=== PATIENT | male | born 1960 | race Caucasian/White ===

== ENCOUNTER 2016-11-30 07:07 | Day surgery (SDC) | payer OTHER ==
[2016-11-28 10:34] VITALS: BMI 35.1
[~2016-11-30 07:07] MED LIST: LACTATED RINGERS 1,000 ML IV SCH
[2016-11-30 07:38] VITALS: TEMP 97.5
[2016-11-30] MEDS ORDERED: LIDOCAINE 1% 20 ML VIAL (10MG/ML) FOR IV START INTRADERMA ONE (07:51)
[2016-11-30 07:52] LABS: Glucose,Whole Blood 86 mg/dL (75-99)
[2016-11-30] MEDS ORDERED: DEXTROSE 50%-WATER 50 ML SYRINGE IVP ONE (08:10)
[2016-11-30] MEDS ORDERED: fentaNYL (PF) 50 MCG/ML 2 ML AMP ONE (08:35)
[2016-11-30] MEDS ORDERED: LIDOCAINE 1% INJ 10MG/ML (20 ML MDV) ONE (08:35)
[2016-11-30] MEDS ORDERED: PROPOFOL 10 MG/ML 20 ML VIAL IV ONE (08:35)
[2016-11-30 09:13] VITALS: RESP 18
--- NOTE | 2016-11-30 09:18 | P.PCN ---
Date of Procedure: 11/30/16 Procedure(s) Performed: Procedure: 1. Esophagogastroduodenoscopy and biopsy. 2. Total colonoscopy. Preoperative diagnosis: Abdominal pain, change in bowel habits and abnormal CT of the abdomen. Postoperative diagnosis: 1. Mild gastritis and duodenitis. 2. Poor colon preparation, otherwise, exam of the colon and terminal ileum within normal limits. Preparation: HalfLytely prep. Sedation: Was provided by anesthesia. Brief clinical history: The patient is a 56-year-old male who was evaluated in the office because of abdominal pains and change in bowel habits. He had a CT of the abdomen in May 2016 that showed thickening in the duodenum. No alarm symptoms. Procedure: With the patient on his left lateral decubitus position and after informed consent and adequate sedation, I passed the Olympus-GIF 160 video upper endoscope cricopharyngeus down the esophagus. GE junction was around 43- 44 cm from the incisors and there was no definite hiatal hernia. There was some sticky exudates in the distal esophagus close to the GE junction that I was not certain that these were food debris or infectious in etiology. Biopsies were obtained. The stomach was insufflated with air and inspected in detail including the retroflex view in the cardia. There was some mottling and erythema in the antrum but no ulcers or erosions. Pyloric channel did not show any ulcers. Duodenal bulb, post bulbar area and descending duodenum showed minimal erythema but no ulcers or erosions. I obtained biopsies from the duodenum and the antrum and addition to the esophageal biopsies then the endoscope was withdrawn and I proceeded to do colonoscopy. Perianal area did not show any fissures or fistulas. There were no masses felt on digital rectal examination. The Olympus CFQ 160L video colonoscope was then inserted in the rectum in the usual fashion and advanced to the cecum. I intubated the ileocecal valve and examined the terminal ileum. Terminal ileum looked normal. Unfortunately, the preparation was poor and I was not able to wash and suction all the fecal material and fecal debris encountered. Where visualized, the mucosa appeared healthy. No obvious polyps or tumors or diverticular disease. I retroflexed the endoscope in the rectum before the endoscope was withdrawn. The patient tolerated the procedure well. Plan: The patient was reassured. Will await biopsy results. Since his preparation was less than ideal, I recommend repeat exam in 3-4 years before going to a 10-year schedule in the absence of family history or other risk factors for colon cancer.
[2016-11-30 09:24] LABS: Glucose,Whole Blood 104 mg/dL (75-99)
[2016-11-30 09:33] VITALS: BP 149/80; PULSE 68
== END 2016-11-30 09:47 | disposition home or self-care (01) ==
LOC: ORWHC2ENDO 07:07
DX: K29.50 Unspecified chronic gastritis without bleeding (principal); K29.80 Duodenitis without bleeding; R19.4 Change in bowel habit; R93.3 Abnormal findings on diagnostic imaging of other parts of digestive tract; J44.9 Chronic obstructive pulmonary disease, unspecified; J45.909 Unspecified asthma, uncomplicated; E11.9 Type 2 diabetes mellitus without complications; I10 Essential (primary) hypertension; G47.33 Obstructive sleep apnea (adult) (pediatric); F39 Unspecified mood [affective] disorder; Z79.4 Long term (current) use of insulin; Z79.891 Long term (current) use of opiate analgesic; Z79.899 Other long term (current) drug therapy
CPT/HCPCS: 88305; 88342; 43239; 45378; J2001; J3010; J2704

== ENCOUNTER → 2020-11-16 | Outpatient (CLI) | payer BC ==
--- NOTE | 2020-11-16 19:34 | CONS ---
CONSULTATION REASON FOR CONSULTATION: Sleep apnea. HISTORY OF PRESENT ILLNESS: Pipe is a 54-year-old male patient who is known to me. I have diagnosed him with having severe obstructive sleep apnea back in 2014, and at that time the patient had an AHI of 63, worse in the supine body position. He used to weigh around 300 pounds back then AND he was diabetic and had hypertension AND COPD. I ultimately treated the patient with BiPAP at a pressure of 16/12 cm of water with a Simplus medium-sized full- face mask. He has done extremely well over the past years to the point where the patient did not have to see me and he has been lost to followup. Today he is presenting back and he feels that his machine is giving up on him and it has become noisy and malfunctioning and for that reason, he is hoping to update his BiPAP unit. I checked the compliance over the past 30 days and the patient is very compliant utilizing his machine every night, averaging around 11 hour of BiPAP use per night with a leak of 10 L/minute, tidal volume generated on the machine was 380 cc with a respiratory rate of 19 and a minute ventilation of 7.3 L/minute. His AHI while on treatment is down to 0.5. The patient has been adequately treated and the patient's Dickinson score is down to 5. His weight has remained stable, probably with 5 pounds weight gain over the past 6 years. His sleep study machine was ordered to him originally through [employer] and [employer]. No new onset medical problems and comorbidities. He is not taking any sugar pills for now. His blood sugars according to him has been under adequate control. PAST MEDICAL HISTORY: 1. Obstructive sleep apnea. 2. Obesity. 3. Hypertension. 4. Peripheral neuropathy. 5. Carpal tunnel disease. 6. Chronic back pain secondary to lumbar disk disease. SURGICAL HISTORY: None. DRUG ALLERGIES: None. OUTPATIENT MEDICATION: List includes Cymbalta 60, 2 tablets a day, Diovan 160 mg p.o. daily, Neurontin 300 mg 3 times a day, [place] 10/325 on a p.r.n. basis. SOCIAL HISTORY: He smokes one pack of cigarettes a day. No history of alcoholism. No history of IV drugs. FAMILY HISTORY: Mother of stomach cancer. Father of lung disease. He is currently living with his . REVIEW OF SYSTEMS: Fourteen-point review of system was done. No new complaints. His sleep apnea has been well treated over the years. His current Dickinson score is only at 5. PHYSICAL EXAMINATION: VITAL SIGNS: BP is 174/91, pulse is 84, respirations 16, temperature 98.6, saturation 98% on room air. Height is 6 feet 1 inch, weight is 305, Dickinson score is at 5. BMI is 40.2. Neck size is 20 inches. GENERAL APPEARANCE: Calm and comfortable. HEENT: Head atraumatic, normocephalic. NECK: Supple, Mallampati class 4. There is no goiter or neck masses. LUNGS: Clear. HEART: Heart sounds are regular rate and rhythm, normal S1, S2. No S3, S4. No murmurs. ABDOMEN: Soft, nontender. No organomegaly. EXTREMITIES: No edema. No cyanosis or clubbing. NEUROLOGIC: Awake and alert. There is no focal neurological deficits. PSYCHIATRIC: Negative for anxiety or depression. IMPRESSION: 1. Symptomatic obstructive sleep apnea, positional, worse in a supine body position. Baseline AHI has been 53 based on a polysomnogram that was done in July of 2014. The patient has been treated over the years with a BiPAP pressure of 16/12 cm of water. He has an Air Curve 10s ResMed unit which has been functional over the past 6 years and recently the machine has been acting up and the patient is interested in updating his BiPAP unit. 2. Obesity with a stable body weight. Current BMI is 40.2. 3. Peripheral neuropathy. 4. Hypertension. 5. Chronic obstructive pulmonary disease. 6. Chronic back pain. PLAN: 1. Encourage weight loss. 2. Order a new BiPAP unit for this patient. I would rather this patient get a VPAP auto which will be set at a pressure of 16/12 cm of water with a pressure support of 4 and I should be able to make further adjustments in the future if needed. 3. If confirmation of sleep apnea is needed, will order a home sleep study. 4. Encourage weight loss. 5. Keep the same mask interface which is a medium-sized Simplus full-face mask. 6. Treat comorbidities including chronic back pain. 7. We will continue to follow. The patient will see me back after obtaining his new BiPAP unit for a compliancy check. MMODL / IJN: [id number] /
== END ==
LOC: SLEEP 13:53
PROVIDERS: ATTEND Internal Medicine Critical Care Medicine
DX: G47.33 Obstructive sleep apnea (adult) (pediatric) (principal); E66.9 Obesity, unspecified; Z68.41 Body mass index [BMI] 40.0-44.9, adult; E11.42 Type 2 diabetes mellitus with diabetic polyneuropathy; J44.9 Chronic obstructive pulmonary disease, unspecified; G89.29 Other chronic pain; M54.9 Dorsalgia, unspecified; F17.210 Nicotine dependence, cigarettes, uncomplicated
CPT/HCPCS: 99211

== ENCOUNTER → 2021-03-01 | Outpatient (CLI) | payer BC ==
--- NOTE | 2021-03-01 18:52 | PN ---
PROGRESS NOTE 60-year-old male patient with known history of obstructive sleep apnea coming in for a compliancy check. I was able to offer this patient an APAP unit which was set at a minimum pressure of 5 and a maximum pressure of 20. The patient has symptomatic obstructive sleep apnea and disease is severe with an AHI of 53. On today's evaluation, the patient is feeling excellent response and reports 100% improvement sleep quality while on CPAP therapy. He is using Vitera fullface mask large size. Based on the compliance data, he has been using the machine every night and he is utilizing his machine more than 4 hours 100% of the time. Average number of hours spent on the machine per night is 10.8 hours. Based on the average pressure delivered by the machine, the patient is utilizing a pressure of 13.6 cm of water and his AHI is down to 1.3 with a leak of 20 L/minute. His weight has been stable. He is trying to make an active effort to lose weight. His blood pressure is elevated. He is going to work with his primary care physician regarding a tighter blood pressure control. For the most part, his treatment is successful. Would like to increase the minimum pressure, knowing that the starting pressures are quite low for him. He has already eliminated ramp time. PHYSICAL EXAMINATION: BP is 182/83, pulse 80, respirations 16, temperature 97.0. Weatherford score is 5. Saturation 95% on room air. Weight is 301. GENERAL APPEARANCE: Obese, calm, comfortable. Head is atraumatic normocephalic. NECK: Supple. There is no JVD. No goiter or neck masses. The patient is edentulous. Mallampati class 4. LUNGS: Clear to auscultation. HEART: Heart sounds are regular rate and rhythm. Normal S1, S2. No S3, S4. No murmurs. ABDOMEN: Soft. Nontender. No organomegaly. EXTREMITIES: No edema. No cyanosis or clubbing. NEUROLOGIC: Awake and alert. There is no focal neurological deficits. PSYCHIATRIC: Negative for anxiety or depression. IMPRESSION: 1. Symptomatic JOSE F AHI of 16.4, worse in a supine body position with an AHI of 85 while supine, successfully treated with an APAP. 2. Chronic hypersomnia improved. The patient has an Weatherford score of 5 for now. 3. Obesity with a BMI of 40. 4. Peripheral neuropathy. 5. Hypertension. 6. Chronic obstructive pulmonary disease. 7. Chronic back pain. PLAN: We will make some adjustments on his CPAP unit. Increase the minimum pressure up to 12 and lower the maximum pressure down to 18. Eliminate ramp time. Continue using Vitera fullface mask. Encourage weight loss. Treatment is successful. See me back in a year's time in followup. At the same time the patient's blood pressure was noted to be elevated. He was asked to contact his primary care physician for tighter blood pressure control. Implement good sleep hygiene measures. Lose weight. See me back in a year's time. MMODL / IJN: [id number] /
== END ==
LOC: SLEEP 15:14
PROVIDERS: ATTEND Internal Medicine Critical Care Medicine
DX: G47.33 Obstructive sleep apnea (adult) (pediatric) (principal); E66.9 Obesity, unspecified; G62.9 Polyneuropathy, unspecified; M54.5 Low back pain; G89.29 Other chronic pain; J44.9 Chronic obstructive pulmonary disease, unspecified; I10 Essential (primary) hypertension; Z68.41 Body mass index [BMI] 40.0-44.9, adult; Z99.89 Dependence on other enabling machines and devices

== ENCOUNTER → 2022-03-07 | Outpatient (CLI) | payer BC ==
--- NOTE | 2022-03-07 14:44 | P.PN ---
Subjective Progress Note Date: 03/07/22 03/07/2022, I'm seeing the patient for a follow-up. This is a case of severe obstructive sleep apnea with an AHI of 53 and the patient has been afebrile machine at a minimum pressure of 12 and the maximum pressure of 18. The patient remains extremely compliant to his APAP unit as the patient is seen significant amount of improvement. The patient currently utilizing a vitera fullface mask which I donated him during his last evaluation approximately a year ago. He is doing very well. Has lost around 4 pounds. He is working on his diabetes control. He is currently on insulin. Based on the compliance data that was collected over the past 30 days, the patient has been averaging of 11.7 hours of CPAP use for night and the patient has used the machine for more than 4 hours 29 out of the past 30 days. The patient has a leak of 35 L per minute and the patient's AHI is down to 0.3. His weight is down by around 4 pounds. No new complaints otherwise for now. No morning headaches. No chest pain. He had no shortness of breath. No cardiac arrhythmias have been social. No substance abuse. He is able to sleep well and is waking up refreshed during the day. Objective - Exam BP is 159/75 with a pulse of 80 and respiration of 16 with a temperature of 98.4 and oxygen saturation of 96% and the weight is at 297 The patient appeared well nourished and normally developed. Vital signs as documented. Head exam is unremarkable. No scleral icterus or corneal arcus noted. Neck is without jugular venous distension, thyromegaly, or carotid bruits. Carotid upstrokes are brisk bilaterally. Lungs are clear to auscultation and percussion. Cardiac exam reveals the PMI to be normally sized and situated. Rhythm is regular. First and second heart sounds normal. No murmurs, rubs or gallops. Abdominal exam reveals normal bowel sounds, no masses, no organomegaly and no aortic enlargement. Extremities are nonedematous and both femoral and pedal pulses are normal.Examination of the skin revealed no evidence of significant rashes, suspicious appearing nevi or other concerning lesions.Neurologically, the patient is awake and alert and the patient does not have any focal neurological deficit. Cranial nerves are essentially intact. Assessment and Plan Plan: Severe obstructive sleep apnea an AHI of 53, currently on a APAP machine Chronic hypersomnia, and the patient's current [place] score is down to 5 Morbid obesity with a BMI of 39.7 Diabetes mellitus Hypertension History of depression History of chronic back pain COPD Peripheral neuropathy Plan Continue CPAP therapy at the same pressures of 12 minimal and 18 maximum. The average pressure delivered by the machine is around 13.9 cm of water. The patient is using a fullface mask ventilated him a Simplus fullface mask large si ze. Encourage weight loss. Tighter control of cardiovascular risk factors including his diabetes mellitus. He does have some symptoms of neuropathy yet is not affecting his sleep maintenance and daytime functionality. He has lost 24 pounds. Encourage further weight loss. Keep the APAP at the same level of pressure. We'll continue to follow. The patient will see back as needed probably in a year's time.
== END ==
LOC: SLEEP 13:15
PROVIDERS: ATTEND Internal Medicine Critical Care Medicine
DX: G47.33 Obstructive sleep apnea (adult) (pediatric) (principal); E66.01 Morbid (severe) obesity due to excess calories; Z68.39 Body mass index [BMI] 39.0-39.9, adult; I10 Essential (primary) hypertension; M54.9 Dorsalgia, unspecified; G89.29 Other chronic pain; E11.42 Type 2 diabetes mellitus with diabetic polyneuropathy; J44.9 Chronic obstructive pulmonary disease, unspecified; Z99.89 Dependence on other enabling machines and devices; F17.200 Nicotine dependence, unspecified, uncomplicated